=== PATIENT | male | born 1985 | race Caucasian/White ===

== ENCOUNTER → 2021-11-17 | Outpatient (CLI) | payer BC ==
--- NOTE | 2021-11-17 14:01 | MR ---
EXAMINATION TYPE: MR lumbar spine wo con DATE OF EXAM: 11/17/2021 COMPARISON: None HISTORY: NO PRIOR, NO INJURY , LOW BACK PAIN FOR 3 MONTHS TECHNIQUE: Multiplanar, multisequence images of the lumbar spine were acquired without IV contrast. L1-L2: Normal disc appearance without desiccation. No herniation, protrusion or disc bulging. No ca nal stenosis is present. Foramina are patent bilaterally. L2-L3: Normal disc appearance without desiccation. No herniation, protrusion or disc bulging. No ca nal stenosis is present. Foramina are patent bilaterally. L3-L4: Normal disc appearance without desiccation. No herniation, protrusion or disc bulging. No ca nal stenosis is present. Foramina are patent bilaterally. L4-L5: Borderline disc desiccation. Minimal posterior disc bulge. No significant effacement. No herni ation, protrusion or central stenosis. Foramina are patent bilaterally. L5-S1: Mild disc desiccation. Small left paracentral disc herniation mildly effaces the thecal sac wi th some mild left lateral recess stenosis. Neural foramina are patent bilaterally. Lumbar segments are intact. No paraspinal masses are identified. Conus medullaris has a normal appe arance. IMPRESSION: 1. Mild disc desiccation. 2. Mild left paracentral disc herniation at L5-S1 resulting in mild left lateral recess stenosis.
== END | disposition home or self-care (01) ==
LOC: RADMRIMAIN 12:33 → EDBD 12:45
PROVIDERS: ATTEND Family Medicine
DX: M47.27 Other spondylosis with radiculopathy, lumbosacral region (principal); M51.17 Intervertebral disc disorders with radiculopathy, lumbosacral region
CPT/HCPCS: 72148

== ENCOUNTER → 2022-02-18 | Outpatient (CLI) | payer BC ==
--- NOTE | 2022-02-18 15:26 | MR ---
EXAMINATION TYPE: MR lumbar spine wo con DATE OF EXAM: 02/18/2022 COMPARISON: Prior lumbar MRI dated 11/17/2021 HISTORY: Lower back pain, LLE radiculopathy. TECHNIQUE: Multiplanar, multisequence images of the lumbar spine were acquired without IV contrast. FINDINGS: Similar to prior exam, there is no significant spinal stenosis. Loss of disc height signal is again noted at L5-S1. L1-L2: Normal disc appearance without desiccation. No herniation, protrusion or disc bulging. No ca nal stenosis is present. Foramina are patent bilaterally. L2-L3: Normal disc appearance without desiccation. No herniation, protrusion or disc bulging. No ca nal stenosis is present. Foramina are patent bilaterally. L3-L4: Normal disc appearance without desiccation. No herniation, protrusion or disc bulging. No ca nal stenosis is present. Foramina are patent bilaterally. L4-L5: Normal disc appearance without desiccation. No herniation, protrusion or disc bulging. No ca nal stenosis is present. Foramina are patent bilaterally. Mild facet arthropathy changes again prese nt. L5-S1: Left posterior paracentral small disc herniation likely contact the proximal left S1 nerve andres t and stenosis of the left lateral recess. There is loss of disc height signal consistent with disc d esiccation and degenerative disc disease. Some mild facet arthropathy changes present. Lumbar segments are intact. No paraspinal masses are identified. Conus medullaris has a normal appe arance. IMPRESSION: Correlate for left S1 radiculopathy.
== END | disposition home or self-care (01) ==
LOC: RADMRIMAIN 13:17
PROVIDERS: ATTEND Neurological Surgery
DX: M54.16 Radiculopathy, lumbar region (principal)
CPT/HCPCS: 72148